=== PATIENT | female | born 1980 | race Two or more races ===

== ENCOUNTER → 2025-02-24 | Outpatient (CLI) | payer MEDICAID, SELFPAY ==
--- NOTE | 2025-02-24 13:30 | XR_ITS ---
Examination: Screening digital mammography, bilateral Computer aided detection 3-D breast Tomosynthesis, bilateral Date and time of exam: February 24, 2025 1413 hours Indication: Screening Technique: Nonmagnified MLO, CC views of the breasts to been obtained, reconstructed from 3-D Tomosynthesis images. R2 computer aided detection program utilized for evaluation of suspicious masses and/or abnormal calcifications. 3-D Tomosynthesis images obtained. Findings: The breasts are heterogeneously dense, which may obscure small masses 16 mm focal asymmetry inner left breast Benign calcifications Impression: BI-RADS Category 0: Incomplete: Need additional imaging evaluation Recommend follow-up spot tomographic views of 16 mm focal asymmetry inner left breast as well as left breast sonography to complete the workup
== END | disposition home or self-care (01) ==
PROVIDERS: Referring Provider Physician Assistant; Visit Provider Physician Assistant
DX: Z12.31 Encounter for screening mammogram for malignant neoplasm of breast (principal); N64.89 Other specified disorders of breast
CPT/HCPCS: 77063; 77067

== ENCOUNTER → 2025-05-20 | Outpatient (CLI) | payer MEDICAID, SELFPAY ==
--- NOTE | 2025-05-20 13:00 | XR_ITS ---
Examination: Transvaginal ultrasound of the pelvis, complete Technique: Transvaginal sonographic images pelvis performed using rachel scale imaging Exam date and time: May 20, 2025, 1359 hours INDICATIONS: Multiple uterine masses on CT abdomen pelvis September 06, 2021, irregular heavy menses 10 years. FINDINGS: Uterus 9.2 cm Multiple uterine masses, the largest in the anterior uterine body 3.4 x 2.4 cm posterior uterine body 2.8 x 2.7 cm left lateral uterine body 3.6 x 3.5 cm Endometrial stripe 10 mm Right ovary 3.2 cm arterial flow Left ovary 2.6 cm arterial flow IMPRESSION: Multiple uterine areas of probable fibroid degeneration Suggest 6 month follow-up transvaginal pelvic sonography.
--- NOTE | 2025-05-20 13:00 | XR_ITS ---
Examination: Pelvic ultrasound, transabdominal, complete Technique: Transabdominal ultrasound of the pelvis performed using grayscale imaging Date and time of exam: May 20, 2025, 1347 hours INDICATIONS: CT abdomen September 06, 2021 multiple uterine masses, irregular heavy menses 10 years. FINDINGS: Uterus 10.6 cm, anterior uterine body vascular area of fibroid degeneration 4.0 x 3.0 cm, posterior uterine body area of fibroid degeneration 2.4 x 2.4 cm Right ovary obscured by bowel gas Left ovary 2.4 cm arterial flow Endometrial stripe 0.6 cm IMPRESSION: Uterine masses as above, likely fibroid degeneration, recommend 6 month follow-up transvaginal pelvic sonography
== END | disposition home or self-care (01) ==
LOC: CDIM 13:09
PROVIDERS: Referring Provider Nurse Practitioner; Visit Provider Nurse Practitioner
DX: R19.09 Other intra-abdominal and pelvic swelling, mass and lump (principal)
CPT/HCPCS: 76830; 76856

== ENCOUNTER → 2025-06-03 | Outpatient (CLI) | payer OTHER, SELFPAY ==
--- NOTE | 2025-06-03 12:30 | XR_ITS ---
Examination: Breast ultrasound, unilateral, left complete Date and time of exam: June 03, 2025, 1303 hours INDICATIONS: Mammogram February 25, 2000 2516 mm focal asymmetry inner left breast Technique: Real-time rachel scale ultrasonographic imaging performed left breast including all 4 quadrants as well as nipple retroareolar and axillary region. Findings: 8:00 cyst 7 x 6 mm No solid nodules IMPRESSION: BI-RADS Category 2: Benign findings
--- NOTE | 2025-06-03 13:15 | XR_ITS ---
Examination: Diagnostic digital mammography, unilateral, left Computer aided detection 3-D breast Tomosynthesis, unilateral Date and time of exam: The 06/03/2025, 12:46 a.m. Comparisons: February 25, 2020 Indications:. Further evaluate of abnormality seen on prior screening exam Technique: Nonmagnified MLO, CC views of the left breast have been obtained, reconstructed from 3-D Tomosynthesis images. R2 computer aided detection program utilized for evaluation of suspicious masses and/or abnormal calcifications. 3-D Tomosynthesis images obtained. Technologist: Findings: The breasts are heterogeneously dense, which may obscure small masses. No evidence of abnormal masses or suspicious calcifications. The previously described abnormality does not persist on spot compression views and represents superimposition of normal fibroglandular tissue Impression: BI-RADS category 1: Negative findings (within normal) Recommend 1 year follow-up mammogram
== END | disposition home or self-care (01) ==
LOC: CDIM 12:35
PROVIDERS: PCP Registered Nurse; Referring Provider Physician Assistant; Visit Provider Physician Assistant
DX: R92.312 Mammographic fatty tissue density, left breast (principal)
CPT/HCPCS: 76641; 77061; 77065; G0279